=== PATIENT | female | born 1965 | race Caucasian/White ===

== ENCOUNTER → 2016-12-07 | Outpatient (CLI) | payer BC ==
--- NOTE | 2016-12-10 09:55 | MM ---
Reason for exam: screening (asymptomatic). Last mammogram was performed 6 years ago. History: Family history of breast cancer in grandmother. Physical Findings: A clinical breast exam by your physician is recommended on an annual basis and results should be correlated with mammographic findings. MG 3D Screening Mammo W/Cad Bilateral CC and MLO view(s) were taken. Prior study comparison: December 15, 2010, bilateral digital screening mammo w/CAD. February 26, 2003, bilateral special view mammogram. There are scattered fibroglandular densities. No significant changes when compared with prior studies. ASSESSMENT: Negative, BI-RAD 1 RECOMMENDATION: Routine screening mammogram of both breasts in 1 year.
== END ==
LOC: RADMAMWWP 13:26
PROVIDERS: ATTEND Family Medicine
DX: Z12.31 Encounter for screening mammogram for malignant neoplasm of breast (principal)
CPT/HCPCS: 77063; G0202

== ENCOUNTER → 2019-01-19 | Outpatient (CLI) | payer BC ==
--- NOTE | 2019-01-20 13:30 | MM ---
Reason for exam: screening (asymptomatic). Last mammogram was performed 2 years and 1 month ago. History: Family history of breast cancer in grandmother and breast cancer in mother at age 60. Physical Findings: A clinical breast exam by your physician is recommended on an annual basis and results should be correlated with mammographic findings. MG 3D Screening Mammo W/Cad Bilateral CC and MLO view(s) were taken. Prior study comparison: December 07, 2016, bilateral MG 3d screening mammo w/cad. December 15, 2010, bilateral digital screening mammo w/CAD. The breast tissue is heterogeneously dense. This may lower the sensitivity of mammography. No significant changes when compared with prior studies. ASSESSMENT: Benign, BI-RAD 2 RECOMMENDATION: Routine screening mammogram of both breasts in 1 year.
== END ==
LOC: RADMAMWWP 09:42
PROVIDERS: ATTEND Physician Assistant Medical
DX: Z12.31 Encounter for screening mammogram for malignant neoplasm of breast (principal); Z80.3 Family history of malignant neoplasm of breast
CPT/HCPCS: 77063; 77067

== ENCOUNTER → 2021-10-23 | Outpatient (CLI) | payer BC ==
--- NOTE | 2021-10-24 09:07 | XR ---
EXAMINATION TYPE: XR Hip Complete RT DATE OF EXAM: 10/23/2021 COMPARISON: NONE HISTORY: Pain TECHNIQUE: 2 views submitted FINDINGS: There is no evidence of erosive change or acute fracture. There is a spur involving the greater troch anter. There is mild to moderate axial narrowing of the joint space. SI joint arthropathy noted. IMPRESSION: 1. SI joint arthropathy. 2. Mild to moderate arthropathy of the hip. 3. Spurring along the greater trochanter can be associated with trochanteric bursitis correlate thongi casimiro
== END | disposition home or self-care (01) ==
LOC: RADXRYALE 16:01
PROVIDERS: ATTEND Physician Assistant
DX: M12.851 Other specific arthropathies, not elsewhere classified, right hip (principal); M25.751 Osteophyte, right hip; M12.88 Other specific arthropathies, not elsewhere classified, other specified site
CPT/HCPCS: 73502

== ENCOUNTER → 2023-10-11 | Outpatient (CLI) | payer BC ==
--- NOTE | 2023-10-11 14:45 | CT ---
EXAMINATION TYPE: CT abdomen pelvis wo/w con DATE OF EXAM: 10/11/2023 COMPARISON: None HISTORY: Abdominal pain, abnormal bowel sounds. No prior Table was adjusted for with study and straps used to get best possible images of protruding bowel. CT DLP: 4322.50 mGycm Automated exposure control for dose reduction was used. TECHNIQUE: Helical acquisition of images was performed from the lung bases through the pelvis. CONTRAST: Performed with Oral Contrast and with IV Contrast, patient injected with 100 mL of Isovue 300. FINDINGS: The visualized lung bases are clear.. There are bariatric postsurgical changes involving the stomach. There are surgical absence of the gallbladder. There is no focal mass or organomegaly involving the liver, pancreas, spleen and adrenal glands. There is no solid renal mass or hydronephrosis. The caliber of the abdominal aorta is normal and ther e is no retroperitoneal adenopathy or hemorrhage. There is a large ventral abdominal hernia containing multiple bowel loops. The hernia is approximatel y 32 cm wide. Bowel loops appear normal within the hernia and within the abdominal cavity without dre dence of strangulation or inflammation or bowel obstruction. There is no free intraperitoneal air or fluid. There is no pelvic mass or adenopathy. The osseous structures are grossly intact. IMPRESSION: 1. Large ventral hernia containing multiple bowel loops but no evidence of bowel obstruction, strangu lation or inflammation. 2. Postsurgical changes involving the stomach as described above. 3. Cholecystectomy.
== END | disposition home or self-care (01) ==
LOC: RADCTMAIN 10:39
PROVIDERS: ATTEND Family Medicine
DX: K43.9 Ventral hernia without obstruction or gangrene (principal); R19.15 Other abnormal bowel sounds; R19.5 Other fecal abnormalities; Z90.49 Acquired absence of other specified parts of digestive tract
CPT/HCPCS: 74178; Q9967

== ENCOUNTER → 2024-01-15 | Outpatient (CLI) | payer BC ==
--- NOTE | 2024-01-17 10:44 | MM ---
Reason for Exam: Screening (asymptomatic). Last mammogram was performed 5 year(s) and 0 month(s) ago. Patient History: Menarche at age 12. First Full-Term at age 16. Patient has history of breast feeding. Maternal grandmother had breast cancer. Mother had breast cancer, age 60. Risk Values: Kenia 5 year model risk: 2.6%. NCI Lifetime model risk: 15.4%. Prior Study Comparison: 12/15/2010 Bilateral Screening Mammogram, [facility]. 12/07/2016 Bilateral Screening Mammogram, [facility]. 01/19/2019 Bilateral Screening Mammogram, [facility]. Tissue Density: The breasts are heterogeneously dense, which may obscure small masses. Findings: Analyzed By CAD. There is no suspicious group of microcalcifications or new suspicious mass in either breast. Benign-appearing calcifications. Tiny lymph nodes are seen in the axilla stable. Overall Assessment: Benign, BI-RAD 2 Management: Screening Mammogram of both breasts in 1 year. . Patient should continue monthly self-breast exams. A clinical breast exam by your physician is recommended on an annual basis. This exam should not preclude additional follow-up of suspicious palpable abnormalities. Note on Kenia scores and lifetime risk: 1. A Kenia score greater than 3% is considered moderate risk. If this is the case, consider specialist referral to assess eligibility for a risk reducing agent. 2. If overall lifetime risk for the development of breast cancer is 20% or higher, the patient may qualify for future screening with alternating mammogram and breast MRI. Electronically signed and approved by: Blue Saavedra M.D. Radiologis
== END | disposition home or self-care (01) ==
LOC: RADMAMWWP 08:12
PROVIDERS: ATTEND Family Medicine
DX: Z12.31 Encounter for screening mammogram for malignant neoplasm of breast (principal); Z80.3 Family history of malignant neoplasm of breast
CPT/HCPCS: 77063; 77067

== ENCOUNTER → 2024-05-12 | Outpatient (CLI) | payer OTHER ==
--- NOTE | 2024-05-12 12:02 | XR ---
EXAMINATION TYPE: XR lumbar spine 2 or 3V DATE OF EXAM: 05/12/2024 11:43 AM CLINICAL INDICATION: Female, 58 years old with history of M54.50 LUMBAR PAIN; COMPARISON: None TECHNIQUE: XR lumbar spine 2 or 3V - Frontal, lateral and coned in L5-S1 lateral views of the spine. FINDINGS: No evidence of any acute osseous pathology. No evidence of loss of vertebral body height i s seen. There is grade 1 anterolisthesis of L4 and L5 and L5 on S1. Scattered disc space narrowing. M ultilevel marginal osteophyte formation throughout the visualized spine. There is facet joint arthrop athy throughout the spine. Scattered at least mild neural foraminal stenosis. IMPRESSION: 1. No acute fracture. 2. Moderate multilevel disc degeneration. 3. Grade 1 anterolisthesis of L4 on L5 and L5 on S1.
--- NOTE | 2024-05-12 12:03 | XR ---
EXAMINATION TYPE: XR Hip Complete RT DATE OF EXAM: 05/12/2024 11:43 AM CLINICAL INDICATION: Female, 58 years old with history of M25.551 R HIP 2 VIEWS; [facility] COMPARISON: None. TECHNIQUE: XR Hip Complete RT; hip was examined in the frontal and lateral projections FINDINGS: No evidence for acute process, joint dislocation or significant soft tissue swelling. Osteo phyte formation of the superior acetabulum of the hip. There is joint space narrowing. IMPRESSION: 1. No evidence for acute process. 2. Moderate hip osteoarthrosis.
== END | disposition home or self-care (01) ==
LOC: RADXRMAIN 11:18
PROVIDERS: ATTEND Family Medicine
DX: M43.17 Spondylolisthesis, lumbosacral region (principal); M51.36 Other intervertebral disc degeneration, lumbar region; M16.11 Unilateral primary osteoarthritis, right hip; M47.816 Spondylosis without myelopathy or radiculopathy, lumbar region
CPT/HCPCS: 72100; 73502